=== PATIENT | female | born 1970 | race Caucasian/White ===

== ENCOUNTER 2024-01-20 19:49 | Emergency (ER) | payer OTHER ==
[~2024-01-20] VITALS: Ht 152.4 cm; Wt 61.2 kg
[2024-01-20 19:58] VITALS: BP_SYST 130; PULSE 69; RESP 20; TEMP 98; O2SAT 98
[2024-01-20] MEDS: KETOROLAC TROMETHAMINE 30 MG VIAL IVP ONE (21:05)
[2024-01-20] MEDS ORDERED: NAPR-690 PO (21:10)
[2024-01-20] MEDS: KETOROLAC TROMETHAMINE 30 MG VIAL IM ONE (21:22)
[2024-01-20 21:35] VITALS: BP_SYST 130; PULSE 69; RESP 20; TEMP 98; O2SAT 98
== END 2024-01-20 21:35 | disposition home or self-care (01) ==
LOC: SED 19:49
DX: S13.8XXA Sprain of joints and ligaments of other parts of neck, initial encounter (principal); S33.5XXA Sprain of ligaments of lumbar spine, initial encounter; S73.192A Other sprain of left hip, initial encounter; R10.9 Unspecified abdominal pain; Z91.013 Allergy to seafood; Z88.8 Allergy status to other drugs, medicaments and biological substances; Z79.899 Other long term (current) drug therapy; V89.2XXA Person injured in unspecified motor-vehicle accident, traffic, initial encounter; Y93.89 Activity, other specified; Y92.89 Other specified places as the place of occurrence of the external cause; Y99.8 Other external cause status
CPT/HCPCS: 99284; 72040; 72100; 73552; 96372; J1885